=== PATIENT | female | born 1985 | race African-American/Black ===

== ENCOUNTER 2019-05-08 14:35 | Emergency (ER) | payer BC ==
[2019-05-08] MEDS ORDERED: CIPROFLOXACIN HCL 500 MG TAB ONE (15:24)
[2019-05-08] MEDS ORDERED: IBUPROFEN 400 MG TAB ONE (15:25)
[2019-05-08] MEDS ORDERED: IBUPROFEN 200 MG TAB PO ONE (15:25)
--- NOTE | 2019-05-08 15:36 | EDPHYS ---
Physician Documentation [facility] Name: Areli Zuñiga Age: 34 yrs Sex: Female : 1985 Arrival Date: 05/08/2019 Time: 14:39 Bed 8 Private MD: Fredy Melendez E ED Physician Jimmy Ramirez HPI: 05/07 15:33 This 34 yrs old Black Female presents to ER via Ambulatory with complaints of Neck snw Problem. 15:33 The patient or guardian complains of pain, that is acute. The symptoms are located on snw the left base of the skull and right base of the skull. Onset: The symptoms/episode began/occurred acutely. Context: The problem was sustained at home, at a pt felt she had probably slept awkwardly, tenderness to neck. No noted fever, nausea, vomiting, congestion. Associated signs and symptoms: The patient has no apparent associated signs or symptoms. The pain does not radiate. Modifying factors: The symptoms are alleviated by nothing. Severity of symptoms: At their worst the symptoms were moderate. The patient has not experienced similar symptoms in the past. It is unknown whether or not the patient has recently seen a physician. 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 Hepatitis B vaccine is up to date Meningococcal vaccine is up to date. - Social history:: Smoking status: Patient reports the use of cigarette tobacco products, smokes one-half pack cigarettes per day. ROS: 15:32 Constitutional: Negative for fever, chills, and weight loss, Eyes: Negative for injury, snw pain, redness, and discharge, ENT: Negative for injury, pain, and discharge, Neck: Negative for injury and swelling, mild lateral neck pain Cardiovascular: Negative for chest pain, palpitations, and edema, Respiratory: Negative for shortness of breath, cough, wheezing, and pleuritic chest pain, Abdomen/GI: Negative for abdominal pain, nausea, vomiting, diarrhea, and constipation, Back: Negative for injury and pain, : Negative for injury, bleeding, discharge, and swelling, MS/Extremity: Negative for injury and deformity, Skin: Negative for injury, rash, and discoloration, Neuro: Negative for headache, weakness, numbness, tingling, and seizure, Psych: Negative for depression, anxiety, suicide ideation, homicidal ideation, and hallucinations. Exam: 15:31 Constitutional: This is a well developed, well nourished patient who is awake, alert, snw and in no acute distress. Head/Face: Normocephalic, atraumatic. Eyes: Pupils equal round and reactive to light, extra-ocular motions intact. Lids and lashes normal. Conjunctiva and sclera are non-icteric and not injected. Cornea within normal limits. Periorbital areas with no swelling, redness, or edema. ENT: Nares patent. No nasal discharge, no septal abnormalities noted. Tympanic membranes are normal and external auditory canals are clear. Oropharynx with no redness, swelling, or masses, exudates, or evidence of obstruction, uvula midline. Mucous membranes moist. Neck: Trachea midline, no thyromegaly or masses palpated, and no cervical lymphadenopathy. Supple, full range of motion without nuchal rigidity, or vertebral point tenderness. No Meningismus. tenderness to lateral right neck and down right shoulder Chest/axilla: Normal chest wall appearance and motion. Nontender with no deformity. No lesions are appreciated. Cardiovascular: Regular rate and rhythm with a normal S1 and S2. No gallops, murmurs, or rubs. Normal PMI, no JVD. No pulse deficits. Respiratory: Lungs have equal breath sounds bilaterally, clear to auscultation and percussion. No rales, rhonchi or wheezes noted. No increased work of breathing, no retractions or nasal flaring. Abdomen/GI: Soft, non-tender, with normal bowel sounds. No distension or tympany. No guarding or rebound. No evidence of tenderness throughout. Back: No spinal tenderness. No costovertebral tenderness. Full range of motion. Skin: Warm, dry with normal turgor. Normal color with no rashes, no lesions, and no evidence of cellulitis. MS/ Extremity: Pulses equal, no cyanosis. Neurovascular intact. Full, normal range of motion. Neuro: Awake and alert, GCS 15, oriented to person, place, time, and situation. Cranial nerves II-XII grossly intact. Motor strength 5/5 in all extremities. Sensory grossly intact. Cerebellar exam normal. Normal gait. Psych: Awake, alert, with orientation to person, place and time. Behavior, mood, and affect are within normal limits. Vital Signs: 14:40 BP 138 / 89; Pulse 88; Resp 17 S; Temp 97.8(TE); Pulse Ox 100% on R/A; Weight 102.97 kg ca1 (R); Height 6 ft. 2 in. (187.96 cm); 14:40 Body Mass Index 29.14 (102.97 kg, 187.96 cm) ca1 MDM: 14:51 Patient medically screened. snw 15:32 Data reviewed: vital signs, nurses notes. Data interpreted: Pulse oximetry: on room air snw is 100 %. Interpretation: normal. Counseling: I had a detailed discussion with the patient and/or guardian regarding: the historical points, exam findings, and any diagnostic results supporting the discharge/admit diagnosis, the presence of at least one elevated blood pressure reading (>120/80) during this emergency department visit, the need for outpatient follow up, to return to the emergency department if symptoms worsen or persist or if there are any questions or concerns that arise at home. Response to treatment: There is no appreciated change of the patient's symptoms at this time. Administered Medications: 15:26 Drug: Cipro 500 mg Route: PO; em 15:29 Follow up: Response: No adverse reaction em 15:26 Drug: Motrin 600 mg Route: PO; em 15:29 Follow up: Response: No adverse reaction em Disposition: 16:22 Co-signature as Attending Physician, Jimmy Ramirez MD I agree with the assessment and kdr plan of care. Disposition: 05/08/19 15:06 Discharged to Home. Impression: Contact with and (suspected) exposure to meningococcus. - Condition is Stable. - Discharge Instructions: Hypertension, Bacterial Meningitis, Muscle Pain, Adult, Heat Therapy, Droplet Precautions, Form - Blood Pressure Record Sheet, Viral Meningitis, Adult. - Prescriptions for orphenadrine citrate 100 mg Oral Tablet Sustained Release - take 1 tablet by ORAL route 2 times per day As needed; 20 tablet. - School release form, Work release form, Medication Reconciliation Form, Thank You Letter, Antibiotic Education, Prescription Opioid Use form. - Follow up: Emergency Department; When: As needed; Reason: Worsening of condition. Follow up: Private Physician; When: 2 - 3 days; Reason: Recheck today's complaints, Continuance of care, Re-evaluation by your physician. Signatures: Jimmy Ramirez MD MD [facility] Ruth Garcia, CHUTE TAPPER-C CHUTE TAPPER-Csnw Gerard Barnard, LINDSEY RN em AcobAmber RN RN ca1 Corrections: (The following items were deleted from the chart) 14:49 14:40 Immunization history: Adult Immunizations up to date, Flu vaccine is up to date. ca1 Meningococcal vaccine is up to date ca1 15:19 14:50 Urine Test ordered. snw em 15:19 14:50 Urine Dipstick-Ancillary ordered. [facility] em 15:35 15:06 05/08/2019 15:06 Discharged to Home. Impression: Contact with and (suspected) em exposure to meningococcus. Condition is Stable. Forms are Medication Reconciliation Form, Thank You Letter, Antibiotic Education, Prescription Opioid Use. Follow up: Emergency Department; When: As needed; Reason: Worsening of condition. Follow up: Private Physician; When: 2 - 3 days; Reason: Recheck today's complaints, Continuance of care, Re-evaluation by your physician. snw
--- NOTE | 2019-05-08 15:36 | ER ---
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 the analytical research program manager sent me to the ER since I had close contact with her. And on and Monday, I called in for my Clinicals for having shoulder and neck pains. Denies fever and rash. Reports occasional cough that may be from smoking. Coronavirus screen: The patient has NOT traveled to a country currently being monitored by the CDC within the last 14 days. The patient has NOT had contact with any known and/or suspected case of coronavirus. Ebola Screen: Patient negative for fever greater than or equal to 101.5 degrees Fahrenheit, and additional compatible Ebola Virus Disease symptoms Patient denies exposure to infectious person. Patient denies travel to an Ebola-affected area in the 21 days before illness onset. No symptoms or risks identified at this time. Initial Sepsis Screen: Does the patient meet any 2 criteria? No. Patient's initial sepsis screen is negative. Does the patient have a suspected source of infection? No. Patient's initial sepsis screen is negative. Risk Assessment: Do you want to hurt yourself or someone else? Patient reports no desire to harm self or others. Onset of symptoms was May 08, 2019. 14:40 Method Of Arrival: Ambulatory ca1 14:40 Acuity: OK 3 ca1 Triage Assessment: 14:48 General: Appears. 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 Hepatitis B vaccine is up to date Meningococcal vaccine is up to date. - Social history:: Smoking status: Patient reports the use of cigarette tobacco products, smokes one-half pack cigarettes per day. Screenin:23 Abuse screen: Denies threats or abuse. Nutritional screening: No deficits noted. em Tuberculosis screening: No symptoms or risk factors identified. Fall Risk None identified. Assessment: 15:20 General: Appears in no apparent distress. comfortable, Behavior is calm, cooperative, em Denies fever. Pain: Complains of pain in neck Pain currently is 6 out of 10 on a pain scale. Neuro: Level of Consciousness is awake, alert, obeys commands, Oriented to person, place, time, situation, Appropriate for age Denies blurred vision dizziness, headache. Cardiovascular: Capillary refill < 3 seconds Patient's skin is warm and dry. Respiratory: Airway is patent Respiratory effort is even, unlabored, Respiratory pattern is regular, symmetrical, Breath sounds are clear Denies cough. GI: Patient currently denies nausea, vomiting. Derm: Skin is intact, is healthy with good turgor, Skin is pink, warm \T\ dry. Musculoskeletal: Capillary refill < 3 seconds, Range of motion: intact in all extremities. Vital Signs: 14:40 BP 138 / 89; Pulse 88; Resp 17 S; Temp 97.8(TE); Pulse Ox 100% on R/A; Weight 102.97 kg ca1 (R); Height 6 ft. 2 in. (187.96 cm); 14:40 Body Mass Index 29.14 (102.97 kg, 187.96 cm) ca1 ED Course: 14:39 Patient arrived in ED. mr 14:39 Fredy Melendez MD is Private Physician. mr 14:46 Triage completed. ca1 14:48 Arm band placed on right wrist. ca1 14:49 Ruth Garcia FNP-C is PHCP. snw 14:53 Gerard Barnard, LINDSEY is Primary Nurse. em 15:09 Jimmy Ramirez MD is Attending Physician. snw 15:23 Patient has correct armband on for positive identification. Bed in low position. Call em light in reach. 15:29 No provider procedures requiring assistance completed. Patient did not have IV access em during this emergency room visit. Administered Medications: 15:26 Drug: Cipro 500 mg Route: PO; em 15:29 Follow up: Response: No adverse reaction em 15:26 Drug: Motrin 600 mg Route: PO; em 15:29 Follow up: Response: No adverse reaction em Outcome: 15:06 Discharge ordered by MD. law 15:33 Discharged to home ambulatory. em 15:33 Condition: good 15:33 Discharge instructions given to patient, Instructed on discharge instructions, follow up and referral plans. medication usage, Demonstrated understanding of instructions, follow-up care, medications, Prescriptions given X 1. 15:35 Patient left the ED. em Signatures: Ruth Garcia, GIANNI-C HEATER OPERATOR HELPER-Elise Huber Edgar, RN RN em Aashish, LINDSEY Clark RN ca1 Corrections: (The following items were deleted from the chart) 14:49 14:40 Immunization history: Adult Immunizations up to date, Flu vaccine is up to date. ca1 Meningococcal vaccine is up to date ca1
[2019-05-08 16:12] VITALS: BP 138/89; TEMP 97.8; O2SAT 100
== END 2019-05-08 15:35 | disposition home or self-care (01) ==
LOC: ER 14:35
DX: M54.2 Cervicalgia (principal); Z20.811 Contact with and (suspected) exposure to meningococcus
CPT/HCPCS: 99283